=== PATIENT | male | born 1960 | race Caucasian/White ===

== ENCOUNTER 2019-02-20 16:15 | Inpatient (IN) | payer MEDICAID ==
[~2019-02-20] VITALS: Ht 180.3 cm; Wt 76.4 kg
[2019-02-20] MEDS ORDERED: SODIUM CHLORIDE FLUSH 10ML SYR IVF ONE (16:30)
[2019-02-20 16:44] LABS: BASOPHILS % (AUTO) 0 % (0-1); EOSINOPHILS # (AUTO) 0.12 x10^3/uL (0-0.4); EOSINOPHILS % (AUTO) 1 % (1-7); LYMPHOCYTES # (AUTO) 1.69 x10^3/uL (1-3.4); LYMPHOCYTES % (AUTO) 20 % (22-44); MD NO; MEAN CORPUSCULAR HEMOGLOBIN 33.8 pg (27.5-34.5); MEAN CORPUSCULAR HGB CONC 34.1 g/dL (33.2-36.2); MEAN PLATELET VOLUME 7.5 fL (7.4-10.4); MONOCYTES # (AUTO) 0.81 x10^3/uL (0.2-0.8); MONOCYTES % (AUTO) 10 % (2-9); NEUTROPHILS # (AUTO) 5.86 x10^3/uL (1.8-6.8); NEUTROPHILS % (AUTO) 69 % (42-75); PLATELET COUNT 131 x10^3/uL (130-400); RED BLOOD COUNT 3.02 x10^6/uL (4.38-5.82); RED CELL DISTRIBUTION WIDTH 18.6 % (9.4-14.8)
--- NOTE | 2019-02-20 16:46 | NUR ---
PT TO ROOM 3 W/ C/O BEING DX W/ HEP C, HEP B, CIRRHOSIS, AND PANCREATITIS. STATES HE WAS SEEN AT [facility] AND ADMITTED. PT STATES HE LEFT AMA FROM [facility] THIS AM "BECAUSE THEY'RE NOT DOING ANYTHING FOR ME". PT STATES HE CAME HERE FOR MEDICAL ATTENTION FOR THE SWELLING IN HIS ABDOMEN AND SCROTUM. PT RESTING ON GURNEY. NADN. WARM BLANKET PROVIDED.
[2019-02-20 16:53] LABS: ALBUMIN 2.1 g/dL (3.4-5.0); ANION GAP 8 mmol/L (5-15); CALCIUM 8.4 mg/dL (8.5-10.1); CHLORIDE 102 mmol/L (98-107); CREATININE 0.99 mg/dL (0.7-1.3); INTERNATIONAL NORMALIZED RATIO 1.71 (0.93-1.1); PROTHROMBIN TIME 17.6 Seconds (9.6-11.5)
[2019-02-20 16:58] LABS: ALANINE AMINOTRANSFERASE 58 U/L (12-78); ALKALINE PHOSPHATASE 187 U/L (45-117); BILIRUBIN,TOTAL 4.4 mg/dL (0.2-1.0); TOTAL PROTEIN 7.5 g/dL (6.4-8.2)
--- NOTE | 2019-02-20 17:10 | NUR ---
PT RESTING ON GURNEY. NADN. PINO.
[2019-02-20 17:27] LABS: CULTURE INDICATED? YES; MICROSCOPIC INDICATED
[2019-02-20] MEDS ORDERED: LIDOCAINE-MPF 1%, 5ML ONE (17:51)
--- NOTE | 2019-02-20 17:53 | NUR ---
PT RESTING ON GURNEY. NADN. PINO.
--- NOTE | 2019-02-20 18:29 | NUR ---
PT STATES NONCOMPLIANCE W/ MEDICATIONS.
--- NOTE | 2019-02-20 18:57 | NUR ---
REPORT REC. AWAIT FOR RE-EVAL
--- NOTE | 2019-02-20 19:18 | NUR ---
SLEEPING QUIETLY, AWAIT MD FOR RE-EVAL
[2019-02-20 19:27] LABS: CELLS COUNTED 163
--- NOTE | 2019-02-20 20:40 | NUR ---
HOSPITALIST AT BEDSIDE, REPORT GIVEN
[2019-02-20] MEDS ORDERED: hydrALAzine 20 MG/ML, 1ML IVPush PRN (22:00)
[2019-02-20] MEDS ORDERED: FUROSEMIDE 40 MG/4 ML IV ONE (22:30)
[2019-02-20] MEDS ORDERED: ALBUMIN HUMAN 25% 100 ML IV ONE (22:30)
[2019-02-21 01:04] VITALS: BP 122/66
[2019-02-21 01:22] VITALS: BP 123/64
[2019-02-21 05:14] LABS: BASOPHILS # (AUTO) 0.18 x10^3/uL (0-0.1); BASOPHILS % (AUTO) 3 % (0-1); EOSINOPHILS # (AUTO) 0.23 x10^3/uL (0-0.4); EOSINOPHILS % (AUTO) 3 % (1-7); LYMPHOCYTES # (AUTO) 1.84 x10^3/uL (1-3.4); LYMPHOCYTES % (AUTO) 27 % (22-44); MD NO; MEAN CORPUSCULAR HEMOGLOBIN 33.5 pg (27.5-34.5); MEAN CORPUSCULAR HGB CONC 34.1 g/dL (33.2-36.2); MEAN CORPUSCULAR VOLUME 98.2 fL (81-97); MEAN PLATELET VOLUME 7.4 fL (7.4-10.4); MONOCYTES # (AUTO) 0.81 x10^3/uL (0.2-0.8); MONOCYTES % (AUTO) 12 % (2-9); NEUTROPHILS # (AUTO) 3.76 x10^3/uL (1.8-6.8); NEUTROPHILS % (AUTO) 55 % (42-75); PLATELET COUNT 103 x10^3/uL (130-400); RED CELL DISTRIBUTION WIDTH 18.9 % (9.4-14.8)
[2019-02-21 05:17] LABS: CHLORIDE 104 mmol/L (98-107)
[2019-02-21 05:23] LABS: ALANINE AMINOTRANSFERASE 45 U/L (12-78); ALKALINE PHOSPHATASE 123 U/L (45-117); ANION GAP 5 mmol/L (5-15); BILIRUBIN,TOTAL 3.4 mg/dL (0.2-1.0); CREATININE 0.79 mg/dL (0.7-1.3); TOTAL PROTEIN 5.8 g/dL (6.4-8.2)
[2019-02-21 08:31] VITALS: BP 145/69
[2019-02-21 09:02] LABS: AMPHETAMINE SCREEN, URINE Negative (Negative); BARBITURATE SCREEN, URINE Negative (Negative); BENZODIAZEPINE SCREEN, URINE Negative (Negative); CANNABINOID SCREEN, URINE Positive (Negative); COCAINE SCREEN, URINE Negative (Negative); METHADONE SCREEN, URINE Negative (Negative); OPIATE SCREEN, URINE Positive (Negative)
[2019-02-21] MEDS ORDERED: LIDODERM 5% PATCH TD ONE (09:30)
[2019-02-21] MEDS: FUROSEMIDE 20 MG TABLET PO SCH (09:58)
[2019-02-21] MEDS: SPIRONOLACTONE 25 MG TABLET PO SCH (09:58)
[2019-02-21] MEDS ORDERED: SPIR25TA5 PO (11:22)
[2019-02-21] MEDS ORDERED: IBUP-1222 PO (11:23)
[2019-02-21] MEDS ORDERED: NICO-487 TD (11:23)
[2019-02-21] MEDS ORDERED: FURO-93 PO (11:24)
[2019-02-21 15:32] VITALS: BP 145/90
[2019-02-21 18:37] LABS: FOLATE LEVEL 13.5 ng/mL (3.1-17.5)
[2019-02-21 18:55] VITALS: BP 111/63
[2019-02-22] MEDS: IBUPROFEN 200 MG TABLET PO PRN ×3 (01:17→20:58)
[2019-02-22 01:59] VITALS: BP 121/72
[2019-02-22] MEDS: FUROSEMIDE 20 MG TABLET PO SCH (08:01)
[2019-02-22] MEDS: SPIRONOLACTONE 25 MG TABLET PO SCH ×2 (08:01→20:46)
[2019-02-22] MEDS: LIDODERM 5% PATCH TD SCH (08:06)
[2019-02-22 08:10] VITALS: BP 104/65
[2019-02-22 09:29] LABS: BASOPHILS # (AUTO) 0.05 x10^3/uL (0-0.1); BASOPHILS % (AUTO) 1 % (0-1); EOSINOPHILS # (AUTO) 0.17 x10^3/uL (0-0.4); EOSINOPHILS % (AUTO) 2 % (1-7); LYMPHOCYTES # (AUTO) 2.01 x10^3/uL (1-3.4); LYMPHOCYTES % (AUTO) 29 % (22-44); MD NO; MEAN CORPUSCULAR HEMOGLOBIN 32.1 pg (27.5-34.5); MEAN CORPUSCULAR HGB CONC 32.6 g/dL (33.2-36.2); MEAN CORPUSCULAR VOLUME 98.4 fL (81-97); MEAN PLATELET VOLUME 7.5 fL (7.4-10.4); MONOCYTES # (AUTO) 0.67 x10^3/uL (0.2-0.8); MONOCYTES % (AUTO) 10 % (2-9); NEUTROPHILS # (AUTO) 4.09 x10^3/uL (1.8-6.8); NEUTROPHILS % (AUTO) 59 % (42-75); PLATELET COUNT 141 x10^3/uL (130-400); RED BLOOD COUNT 2.93 x10^6/uL (4.38-5.82); RED CELL DISTRIBUTION WIDTH 18.7 % (9.4-14.8)
[2019-02-22 09:36] LABS: ALBUMIN 2.2 g/dL (3.4-5.0); ANION GAP 3 mmol/L (5-15); CHLORIDE 104 mmol/L (98-107)
[2019-02-22 09:39] LABS: ALANINE AMINOTRANSFERASE 54 U/L (12-78); ALKALINE PHOSPHATASE 160 U/L (45-117); BILIRUBIN,TOTAL 3.7 mg/dL (0.2-1.0); CREATININE 1.05 mg/dL (0.7-1.3); TOTAL PROTEIN 6.9 g/dL (6.4-8.2)
[2019-02-22] MEDS: AZITHROMYCIN 250 MG TABLET PO SCH (11:12)
[2019-02-22] MEDS: FERROUS SULFATE 325 MG TABLET PO SCH (12:12)
[2019-02-22 13:43] VITALS: BP 117/71
[2019-02-22 20:55] VITALS: BP 125/68
[2019-02-23] MEDS: POLYETHYLENE GLYCOL 17 GM PACKET PO PRN ×2 (02:23→17:05)
[2019-02-23 03:16] VITALS: BP 116/68
[2019-02-23] MEDS: FERROUS SULFATE 325 MG TABLET PO SCH (08:59)
[2019-02-23] MEDS: SPIRONOLACTONE 25 MG TABLET PO SCH ×2 (09:00→20:23)
[2019-02-23] MEDS: LIDODERM 5% PATCH TD SCH (09:00)
[2019-02-23] MEDS: FUROSEMIDE 20 MG TABLET PO SCH (09:02)
[2019-02-23] MEDS: AZITHROMYCIN 250 MG TABLET PO SCH (09:02)
[2019-02-23] MEDS: IBUPROFEN 200 MG TABLET PO PRN ×2 (09:05→17:09)
[2019-02-23 09:10] VITALS: BP 112/68
[2019-02-23] MEDS ORDERED: LIDOCAINE-MPF 1%, 5ML ONE ×2 (09:48)
[2019-02-23] MEDS ORDERED: PINK LADY ENEMA 490 ML BOTTLE PR PRN (10:30)
[2019-02-23 11:01] LABS: BASOPHILS # (AUTO) 0.03 x10^3/uL (0-0.1); BASOPHILS % (AUTO) 1 % (0-1); EOSINOPHILS # (AUTO) 0.13 x10^3/uL (0-0.4); EOSINOPHILS % (AUTO) 2 % (1-7); LYMPHOCYTES # (AUTO) 1.88 x10^3/uL (1-3.4); LYMPHOCYTES % (AUTO) 29 % (22-44); MD NO; MEAN CORPUSCULAR HEMOGLOBIN 34.2 pg (27.5-34.5); MEAN CORPUSCULAR HGB CONC 34.5 g/dL (33.2-36.2); MEAN CORPUSCULAR VOLUME 98.9 fL (81-97); MEAN PLATELET VOLUME 7.3 fL (7.4-10.4); MONOCYTES # (AUTO) 0.74 x10^3/uL (0.2-0.8); MONOCYTES % (AUTO) 12 % (2-9); NEUTROPHILS # (AUTO) 3.71 x10^3/uL (1.8-6.8); NEUTROPHILS % (AUTO) 57 % (42-75); PLATELET COUNT 152 x10^3/uL (130-400); RED BLOOD COUNT 2.96 x10^6/uL (4.38-5.82); RED CELL DISTRIBUTION WIDTH 18.9 % (9.4-14.8)
[2019-02-23 11:06] LABS: ALANINE AMINOTRANSFERASE 60 U/L (12-78); ALBUMIN 2.2 g/dL (3.4-5.0); ANION GAP 2 mmol/L (5-15); CALCIUM 8.2 mg/dL (8.5-10.1); CHLORIDE 106 mmol/L (98-107); CREATININE 1.15 mg/dL (0.7-1.3)
[2019-02-23 11:08] LABS: ALKALINE PHOSPHATASE 191 U/L (45-117); BILIRUBIN,TOTAL 3.1 mg/dL (0.2-1.0); TOTAL PROTEIN 7.2 g/dL (6.4-8.2)
[2019-02-23 15:45] VITALS: BP 114/69
[2019-02-23 20:08] VITALS: BP 113/68
[2019-02-24 03:00] VITALS: BP 100/60
[2019-02-24 08:05] VITALS: BP 109/62
[2019-02-24] MEDS: LIDODERM 5% PATCH TD SCH (08:06)
[2019-02-24] MEDS: FERROUS SULFATE 325 MG TABLET PO SCH (08:15)
[2019-02-24] MEDS: SPIRONOLACTONE 25 MG TABLET PO SCH (08:16)
[2019-02-24] MEDS: FUROSEMIDE 20 MG TABLET PO SCH (08:16)
[2019-02-24 10:07] LABS: BASOPHILS % (AUTO) 0 % (0-1); EOSINOPHILS # (AUTO) 0.42 x10^3/uL (0-0.4); EOSINOPHILS % (AUTO) 5 % (1-7); LYMPHOCYTES # (AUTO) 2.34 x10^3/uL (1-3.4); LYMPHOCYTES % (AUTO) 29 % (22-44); MD NO; MEAN CORPUSCULAR HEMOGLOBIN 33.7 pg (27.5-34.5); MEAN CORPUSCULAR HGB CONC 34.1 g/dL (33.2-36.2); MEAN CORPUSCULAR VOLUME 98.7 fL (81-97); MEAN PLATELET VOLUME 7.7 fL (7.4-10.4); MONOCYTES % (AUTO) 13 % (2-9); NEUTROPHILS # (AUTO) 4.19 x10^3/uL (1.8-6.8); NEUTROPHILS % (AUTO) 53 % (42-75); PLATELET COUNT 148 x10^3/uL (130-400); RED BLOOD COUNT 3.01 x10^6/uL (4.38-5.82); RED CELL DISTRIBUTION WIDTH 18.8 % (9.4-14.8)
[2019-02-24 10:18] LABS: CALCIUM 8.2 mg/dL (8.5-10.1); CHLORIDE 108 mmol/L (98-107)
[2019-02-24 10:23] LABS: ALANINE AMINOTRANSFERASE 57 U/L (12-78); ALBUMIN 2.1 g/dL (3.4-5.0); ALKALINE PHOSPHATASE 191 U/L (45-117); ANION GAP 6 mmol/L (5-15); BILIRUBIN,TOTAL 2.9 mg/dL (0.2-1.0); CREATININE 1.01 mg/dL (0.7-1.3); TOTAL PROTEIN 7.1 g/dL (6.4-8.2)
[2019-02-24] MEDS ORDERED: FURO20TA3 PO (11:13)
[2019-02-24] MEDS ORDERED: LIDO700A20 TD (11:13)
[2019-02-24] MEDS ORDERED: SENN-177 PO (11:13)
[2019-02-24] MEDS ORDERED: SPIR25TA PO (11:13)
[2019-02-24] MEDS ORDERED: FERR-51 PO (11:13)
== END 2019-02-24 13:10 | disposition home or self-care (01) | DRG 432 ==
LOC: ED 17:34 → EDIP 20:00 → 3NE 21:15 → DCLOUNGE 02-24 13:04
PROVIDERS: ADMIT Family Medicine; ATTEND Family Medicine
PROC: 0W9G3ZZ Drainage of Peritoneal Cavity, Percutaneous Approach (ICD-10-PCS; 2019-02-21)
PROC: 0W9G3ZZ Drainage of Peritoneal Cavity, Percutaneous Approach (ICD-10-PCS; principal; 2019-02-23)
DX: K70.31 Alcoholic cirrhosis of liver with ascites (principal); E43 Unspecified severe protein-calorie malnutrition; E87.1 Hypo-osmolality and hyponatremia; B18.1 Chronic viral hepatitis B without delta-agent; B18.2 Chronic viral hepatitis C; D50.9 Iron deficiency anemia, unspecified; D53.9 Nutritional anemia, unspecified; D69.59 Other secondary thrombocytopenia; E83.51 Hypocalcemia; E87.70 Fluid overload, unspecified; K04.7 Periapical abscess without sinus; K70.11 Alcoholic hepatitis with ascites; N50.89 Other specified disorders of the male genital organs; Z59.0 Homelessness; Z91.19 Patient's noncompliance with other medical treatment and regimen; Z68.23 Body mass index [BMI] 23.0-23.9, adult
CPT/HCPCS: 36415; 49083; 74181; 76700; 76705; 80053; 80074; 80307; 81001; 82042; 82150; 82570; 82607; 82728; 82746; 82945; 83540; 83550; 83615; 83690; 83735; 83986; 84100; 84157; 84560; 85025; 85610; 85730; 87070; 87075; 87086; 87102; 87116; 87205; 87206; 87340; 87521; 88112; 88305; 89051; 93306; 99285; G0378; J1940; P9047